=== PATIENT | male | born 1980 | race Caucasian/White ===

== ENCOUNTER 2021-04-15 11:27 | Emergency (ER) | payer OTHER ==
[~2021-04-15] VITALS: Ht 177.8 cm; Wt 81.8 kg
[2021-04-15] MEDS ORDERED: BACITRACIN 0.9 GM PACKET OINTMENT TP ONE (12:30)
[2021-04-15] MEDS ORDERED: LIDOCAINE 1% 10 ML VIAL ID ONE (12:30)
[2021-04-15] MEDS ORDERED: PERTUSS(ACELL),DIPH,TET VAC/PF 0.5 ML SYRINGE IM. ONE (12:30)
[2021-04-15] MEDS ORDERED: POVIDONE-IODINE 10% 15 ML SOLUTION UD TP ONE (12:30)
[2021-04-15 14:07] VITALS: BP 124/63
== END 2021-04-15 14:23 | disposition home or self-care (01) ==
LOC: EMS 11:34
DX: S61.210A Laceration without foreign body of right index finger without damage to nail, initial encounter (principal); W26.8XXA Contact with other sharp object(s), not elsewhere classified, initial encounter; Y93.89 Activity, other specified; Y92.89 Other specified places as the place of occurrence of the external cause; Y99.8 Other external cause status
CPT/HCPCS: 12001; 73140; 90471; 90715; 99283; J3490

== ENCOUNTER 2021-04-17 09:42 | Emergency (ER) | payer OTHER ==
[~2021-04-17] VITALS: Ht 177.8 cm; Wt 107.0 kg
[2021-04-17 09:45] VITALS: BP 117/74
== END 2021-04-17 11:11 | disposition home or self-care (01) ==
LOC: EMS 09:57
DX: S61.210D Laceration without foreign body of right index finger without damage to nail, subsequent encounter (principal); X58.XXXD Exposure to other specified factors, subsequent encounter
CPT/HCPCS: 99281; Z7502

== ENCOUNTER 2023-02-06 16:32 | Emergency (ER) | payer OTHER ==
[~2023-02-06] VITALS: Ht 180.3 cm; Wt 97.3 kg
[2023-02-06 21:38] LABS: COVID AG,FIA SOURCE NASOPHARYNGEAL
[2023-02-06 21:59] LABS: INFLUENZA TYPE A NEGATIVE FOR TYPE A (NEGATIVE); INFLUENZA TYPE B NEGATIVE FOR TYPE B (NEGATIVE)
[2023-02-06] MEDS ORDERED: AZIT250T9 PO (22:14)
[2023-02-06] MEDS ORDERED: ALBUTEROL SULFATE HFA 90 MCG/PUFF 8 GM INHALER IH ONE (22:15)
[2023-02-06 22:25] VITALS: BP 112/70
== END 2023-02-06 23:02 | disposition home or self-care (01) ==
LOC: EMS 16:33
DX: J40 Bronchitis, not specified as acute or chronic (principal); F17.210 Nicotine dependence, cigarettes, uncomplicated; Z20.822 Contact with and (suspected) exposure to COVID-19
CPT/HCPCS: 99284; 71046; 87426; 87804; 94640; J3535